=== PATIENT | male | born 1980 | race African-American/Black ===

== ENCOUNTER 2022-01-23 19:39 | Emergency (ER) | payer OTHER, SELFPAY ==
[2022-01-23 19:39] VITALS: BP 178/118; PULSE 98; RESP 18; TEMP 36.4; O2SAT 98; BMI 46.2
--- NOTE | 2022-01-23 20:30 | RAD_ITS ---
STUDY: X-RAY CHEST REASON FOR EXAM: Male, 41 years old. chest pain TECHNIQUE: Single AP portable view of the chest. COMPARISON: None. FINDINGS: The lungs are clear and expanded. There is no demonstrated pleural abnormality. Normal size heart. Normal mediastinum and reg. Normal visualized pulmonary arteries. Normal visualized aortic arch and descending thoracic aorta. Normal visualized thoracic spine. Normal visualized ribs, clavicles, and shoulders. There is no demonstrated abnormality of the visualized soft tissue structures of the upper abdomen. RAD/Chest 1 View (Portable) IMPRESSION: Normal x-ray examination of the chest. Electronically Signed: Moira Cruz MD at 20:59 EDT Reading Location ID and State: [id number] / Tel , Service support ,
[2022-01-23 20:35] LABS: Absolute Lymphocyte Count 2.41 X10^3/uL (0.83-4.51); Absolute Neutrophil Count 4.5 X10^3/uL (2.0-7.7); Basophil# 0.04 X10^3/uL; Basophil% 0.5 % (0-1); Eosinophil# 0.18 X10^3/uL; Eosinophils% 2.3 % (0-5); Hematocrit 48.7 % (40-54); Hemoglobin 16.7 g/dL (13.0-16.5); Lymphocyte # 2.41 X10^3/ul (0.83-4.51); Lymphocyte % 30.7 % (19-41); Mean Corp Hgb Conc 34.3 g/dL (32-36); Mean Corpuscular Hgb 30.8 pg (27.0-32.0); Mean Corpuscular Volume 89.9 fL (80-94); Mean Platelet Vol. 8.4 fl (6.2-12.0); Monocyte# 0.74 X10^3/uL; Monocyte% 9.4 % (0-10); NRBC Flagged by Analyzer 0 % (0-5); Neutrophil # 4.48 X10^3/uL (2.7-7.7); Platelet Count 316 K/mm3 (150-450); RBC Distribution Width CV 11.8 % (11.6-14.6); RBC Distribution Width SD 38.5 fl (35.1-43.9); Red Blood Count 5.42 M/mm3 (4.6-6.2); White Blood Count 7.9 K/mm3 (4.4-11.0)
[2022-01-23 20:48] LABS: Anion Gap 8 (5-15); BUN 11 mg/dL (7-18); Calcium,Total 9.3 mg/dL (8.5-10.1); Chloride 103 mmol/L (98-107); EST Glomerular Filtration Rate 78 mL/min (>60); Est Glom Filt Rate - Afr Amer 94 mL/min (>60); Estimated Creatinine Clearance 96.02 ml/min; Glucose 115 mg/dL (74-106); Potassium 3.6 mmol/L (3.5-5.1); Sodium Level 137 mmol/L (136-145); Troponin-I HS 12 pg/mL (3.0-78.0)
[2022-01-23 21:05] VITALS: PULSE 83; RESP 19; O2SAT 97
--- NOTE | 2022-01-23 21:45 | ED.VIS.CHEST ---
HPI History of Present Illness Chief Complaint: Chest Pain Narrative Narrative: 41-year-old male presenting with chest discomfort. He describes it as a dull ache. He had this last evening after he went to the [employer] game and had a couple of drinks and some spicy chicken wings. He states that this resolved. He went to sleep and wear a sleep apnea mask as he usually does. He states he does not have a history of GERD. He woke up today and was doing fine although he did not sleep very much. He states that tonight a couple of hours ago he noticed that he had a little discomfort again. He denies shortness of breath. Denies sharp pleuritic pain. He denies chest pressure. He is not lightheaded, dizzy, short of breath. He does express that he has some nausea. There is no radiation of the pain and he points to the left parasternal area. He has a history of a stress test 5 years ago which was normal. No history of cardiac disease that he knows of. He has a history of hypertension and sleep apnea. No fevers, chills, cough. [facility] Medical History HTN (hypertension) Home Medications amlodipine 5 mg tablet 10 mg PO DAILY 01/23/22 [History Last Taken Unknown] Allergy/AdvReac Type Severity Reaction Status Date / Time No Known Allergies Allergy Verified 01/23/22 19:41 Social History Smoking Status: Never smoker [facility] ED Constitutional Constitutional ED: Denies chills or fever(s) Eyes Eyes: Denies blurry vision or change in vision ENT ENT ED: Denies rhinorrhea or sore throat Cardiovascular Cardiovascular: Reports as per HPI Respiratory/Chest Respiratory/Chest: Denies cough or dyspnea Gastrointestinal Gastrointestinal: Reports nausea; Denies abdominal pain or constipation Genitourinary Genitourinary ED: Denies dysuria or hematuria Musculoskeletal Musculoskeletal: Denies arthralgias or back pain Integumentary Denies abscess or Abrasions Neurologic Neurologic: Denies headache(s) or paresthesias Psychiatric Psychiatric: Denies anxiety or depression EXAM Physical Exam Const Vital Signs: 01/23/22 19:39 01/23/22 20:24 01/23/22 20:24 Temperature 97.6 F L Temperature Source Temporal Pulse Rate 98 Respiratory Rate 18 Respiratory Effort Normal Non-Labored Blood Pressure 178/118 H Blood Pressure Mean 138 Pulse Ox 98 Oxygen Delivery Method Room Air Room Air 01/23/22 21:05 01/23/22 22:20 Temperature Temperature Source Pulse Rate 83 75 Respiratory Rate 19 H 20 H Respiratory Effort Blood Pressure 142/97 H Blood Pressure Mean 112 Pulse Ox 97 98 Oxygen Delivery Method Room Air Room Air Positive well nourished General Appearance ED: NAD; Negative for pallor HEENT Reports moist mucous membranes normocephalic Eyes PERRL and EOMs intact bilaterally Chest Wall inspection of chest normal Resp normal respiratory effort and clear to auscultation bilaterally Auscultation: Negative for rales, rhonchi or wheezes Cardio regular rate and regular rhythm GI normal to inspection, nondistended, normoactive bowel sounds Neuro oriented x3 and CN's II-XII intact bilaterally Sensorium / Orientation: awake and alert Psych mental status grossly normal Skin no rashes or lesions noted and no wounds General Skin Exam: Negative for jaundice or pallor Heart Score History: Slightly/Non-Suspicious ECG: Normal Age: </= 45 years Risk Factors: 1 or 2 Risk Factors Troponin: </= Normal Limit Score: 1 MDM MDM MDM Narrative Medical decision making narrative: Patient presenting with 2 episodes of chest discomfort. One he had last evening which lasted short durationan one this evening which was similar. He states he does not have any discomfort now. He does express that he has a little bit of nausea with this. No history of cardiac disease with a negative stress test about 5 years ago. EKG on my interpretation shows sinus rhythm with a ventricular rate of 79 bpm without signs of ischemic change or dysrhythmia. Chest x-ray on my interpretation shows no acute cardiopulmonary process and the radiologist agree. CBC shows no leukocytosis. Hemoglobin is slightly hemoconcentrated at 16.7. Platelets normal at 316. Renal function electrolytes within normal limits. HEART score of 1. High-sensitivity troponin is 12. Delta troponin 11. At this point I feel the patient has negative cardiac work-up he safe for discharge home. I have low suspicion for PE and patient is PERC negative. Patient counseled on findings. He will follow-up with his primary care to ensure resolution. Return precautions discussed. Impression: 1. Chest pain 2. Nausea Lab Data Attestation: I reviewed the patient's lab results. Labs: Laboratory Results - last 24 hr 01/23/22 01/23/22 01/23/22 20:20 20:20 22:19 WBC 7.9 RBC 5.42 Hgb 16.7 H Hct 48.7 MCV 89.9 MCH 30.8 MCHC 34.3 RDW Std Deviation 38.5 RDW Coeff of Antonio 11.8 Plt Count 316 MPV 8.4 Immature Gran % (Auto) 0.100 Neut % (Auto) 57.0 Lymph % (Auto) 30.7 [place] % (Auto) 9.4 Eos % (Auto) 2.3 Baso % (Auto) 0.5 Absolute Neuts (auto) 4.5 Absolute Lymphs (auto) 2.41 Nucleated RBC % 0 Sodium 137 Potassium 3.6 Chloride 103 Carbon Dioxide 26.0 Anion Gap 8 BUN 11 Creatinine 1.10 Estim Creat Clear Calc 96.02 Est GFR (MDRD) Af Amer 94 Est GFR (MDRD) Non-Af 78 BUN/Creatinine Ratio 10.0 Glucose 115 H Calcium 9.3 Troponin I High Sens 12 11 Radiography Diagnostic Testing: Clinical Impression(s) from Imaging Studies Chest X-Ray 01/23/22 20:30 IMPRESSION: Normal x-ray examination of the chest. Electronically Signed: Moira Cruz MD at 20:59 EDT Reading Location ID and State: [id number] / Tel , Service support , Discharge Plan Triage Chief Complaint: Chest Pain ED Provider: Steven Vasquez Dx/Rx/DC Orders Instructions: ED Chest Pain, Noncardiac Prescriptions: No Action amlodipine 5 mg tablet 10 mg PO DAILY Label Comments: take 1 tablet by mouth once daily Primary Care Provider: Arnie Dang Referrals: Arnie Dang MD [Primary Care Provider] - Disposition Disposition: Home, Self Care
[2022-01-23 22:20] VITALS: BP 142/97; PULSE 75; RESP 20; O2SAT 98
[2022-01-23 22:46] LABS: Troponin-I HS 11 pg/mL (3.0-78.0)
[2022-01-23 23:13] VITALS: BP 137/91; PULSE 74; RESP 15; O2SAT 97
== END 2022-01-23 23:17 | disposition home or self-care (01) ==
PROVIDERS: Emergency Provider Student in an Organized Health Care Education/Training Program; PCP Internal Medicine; Visit Provider Student in an Organized Health Care Education/Training Program
DX: R07.9 Chest pain, unspecified (principal); R11.0 Nausea; I10 Essential (primary) hypertension; Z79.899 Other long term (current) drug therapy
CPT/HCPCS: 36415; 71045; 80048; 84484; 85025; 93005; 99284; A4216

== ENCOUNTER 2022-03-28 20:12 | Emergency (ER) | payer OTHER, SELFPAY ==
[2022-03-28 20:13] VITALS: BP 140/89; PULSE 87; RESP 16; TEMP 36.7; O2SAT 97; BMI 45.6
--- NOTE | 2022-03-28 20:36 | EKG12_ITS ---
Test Reason : CP Blood Pressure : / mmHG Vent. Rate : 086 BPM Atrial Rate : 086 BPM P-R Int : 170 ms QRS Dur : 090 ms QT Int : 354 ms P-R-T Axes : 015 047 -04 degrees QTc Int : 423 ms Normal sinus rhythm Normal ECG Confirmed by PALOMA STEPHENS, YEIMI ([id number]), acquisitions editor ADRYAN DA SILVA ([id number]) on 03/30/2022 6:37:50 AM Referred By: MAIA Confirmed By:KJ DOW MD
--- NOTE | 2022-03-28 20:37 | RAD_ITS ---
INDICATION: chest pain EXAMINATION/TECHNIQUE: X-RAY - XR Chest 1 View COMPARISON: 01/23/2022 FINDINGS: LIFE-SUPPORT AND LINES: 1. None HEART AND VESSELS: The cardiac silhouette, pulmonary vasculature have normal appearance. No evidence of congestive failure. LUNGS AND PLEURAL SPACES: Lungs are clear. No focal infiltrate, consolidation or effusions. No evidence of pneumothorax. No pulmonary mass is noted. MEDIASTINUM AND HILAR REGIONS: No masses adenopathy noted. No areas of calcification. Visualized upper airway is normal in position. BONY ELEMENTS: No acute bony changes noted. RAD/Chest 1 View (Portable) IMPRESSION: 1. No evidence of acute cardiopulmonary process Electronically Signed: Hemant Wilkerson MD at 20:49 EST ,
[2022-03-28 22:14] LABS: Absolute Lymphocyte Count 3.62 X10^3/uL (0.83-4.51); Absolute Neutrophil Count 3.7 X10^3/uL (2.0-7.7); Basophil# 0.05 X10^3/uL; Basophil% 0.6 % (0-1); Eosinophil# 0.18 X10^3/uL; Eosinophils% 2.2 % (0-5); Hematocrit 50.3 % (40-54); Hemoglobin 17.2 g/dL (13.0-16.5); Lymphocyte # 3.62 X10^3/ul (0.83-4.51); Lymphocyte % 43.9 % (19-41); Mean Corp Hgb Conc 34.2 g/dL (32-36); Mean Corpuscular Hgb 30.4 pg (27.0-32.0); Mean Corpuscular Volume 88.9 fL (80-94); Mean Platelet Vol. 8.5 fl (6.2-12.0); Monocyte# 0.72 X10^3/uL; Monocyte% 8.7 % (0-10); NRBC Flagged by Analyzer 0 % (0-5); Neutrophil # 3.65 X10^3/uL (2.7-7.7); Neutrophil % 44.4 % (47-70); Platelet Count 340 K/mm3 (150-450); RBC Distribution Width CV 11.7 % (11.6-14.6); RBC Distribution Width SD 38.2 fl (35.1-43.9); Red Blood Count 5.66 M/mm3 (4.6-6.2); White Blood Count 8.2 K/mm3 (4.4-11.0)
--- NOTE | 2022-03-28 22:25 | EDS_ITS ---
HPI History of Present Illness Chief Complaint: Chest Pain Narrative Narrative: Patient is a 41-year-old male with past medical history of hypertension sleep apnea and low testosterone. 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 He states since that time he will feel intermittent lightheadedness and he will also not wake from sleep with some chest discomfort and feeling of shortness of breath. He states he is unsure if this could be cardiac in nature or if he is just having stress/anxiety after the event that occurred at the gym and secondary to this comes in for evaluation [facility] Medical History HTN (hypertension) Home Medications amlodipine 5 mg tablet 10 mg PO DAILY 01/23/22 [History Last Taken Unknown] Allergy/AdvReac Type Severity Reaction Status Date / Time No Known Allergies Allergy Verified 03/28/22 20:13 Social History Smoking Status: Never smoker ROS [facility] ED Constitutional Constitutional ED: Denies chills or fever(s) Eyes Eyes: Denies change in vision ENT ENT ED: Denies sore throat Cardiovascular Cardiovascular: Reports chest pain Respiratory/Chest Respiratory/Chest: Reports dyspnea; Denies cough Gastrointestinal Gastrointestinal: Denies abdominal pain, diarrhea, nausea or vomiting Genitourinary Genitourinary ED: Denies dysuria Musculoskeletal Musculoskeletal: Denies myalgias Integumentary Denies rash Neurologic Neurologic: Reports weakness; Denies headache(s) Hematologic/Lymphatic Hematologic/Lymphatic: Denies easy bleeding or easy bruising EXAM Physical Exam Const Vital Signs: 03/28/22 20:13 03/28/22 22:04 03/28/22 22:04 Temperature 98.0 F Temperature Source Temporal Pulse Rate 87 Pulse Rate [Lying] Pulse Rate [Sitting (for 1 minute prior to obtaining)] Pulse Rate [Standing (for 1 minute prior to obtaining)] Respiratory Rate 16 Respiratory Effort Normal Blood Pressure 140/89 H Blood Pressure [Lying] Blood Pressure [Sitting (for 1 minute prior to obtaining)] Blood Pressure [Standing (for 1 minute prior to obtaining)] Blood Pressure Mean 106 Blood Pressure Mean [Lying] Blood Pressure Mean [Sitting (for 1 minute prior to obtaining)] Blood Pressure Mean [Standing (for 1 minute prior to obtaining)] Pulse Ox 97 Oxygen Delivery Method Room Air Room Air 03/28/22 23:07 03/29/22 00:00 Temperature Temperature Source Pulse Rate 78 Pulse Rate [Lying] 71 Pulse Rate [Sitting (for 1 minute prior to obtaining)] 75 Pulse Rate [Standing (for 1 minute prior to obtaining)] 83 Respiratory Rate 22 H Respiratory Effort Blood Pressure 126/70 H Blood Pressure [Lying] 136/84 H Blood Pressure [Sitting (for 1 minute prior to obtaining)] 122/83 H Blood Pressure [Standing (for 1 minute prior to obtaining)] 156/100 H Blood Pressure Mean 88 Blood Pressure Mean [Lying] 101 Blood Pressure Mean [Sitting (for 1 minute prior to obtaining)] 96 Blood Pressure Mean [Standing (for 1 minute prior to obtaining)] 118 Pulse Ox 99 Oxygen Delivery Method Room Air Positive well nourished, well developed and obese General Appearance ED: well developed Nutritional Appearance: obese HEENT Reports moist mucous membranes Eyes PERRL and EOMs intact bilaterally General Eye ED: Negative for pale conjunctiva Neck supple Neck Narrative: No carotid bruit noted No thyroid nodule or goiter noted Chest Wall palpation of chest normal Resp normal respiratory effort and clear to auscultation bilaterally Cardio regular rate and regular rhythm Rate: other Other Details: Radial pulses are +2-4 bilaterally are equal and symmetric GI normal to inspection, nondistended, normoactive bowel sounds, non-tender, non- distended and no masses GI Narrative: No voluntary guarding or rigidity no pulsatile mass Auscultation: normoactive bowel sounds Palpation: soft Extremity normal to inspection Extremity Narrative: No asymmetric edema no pitting edema negative Homans' sign bilaterally Neuro oriented x3 and CN's II-XII intact bilaterally Sensorium / Orientation: alert Psych mental status grossly normal Skin no rashes or lesions noted MDM MDM MDM Narrative Medical decision making narrative: Patient presented to the ER in no acute distress with symptoms of cardiac disease versus anxiety as he reports he would have the symptoms mainly at night and after this stressful event occurred at work. However he does have risk factors for CAD so a basic work-up was obtained. Initial and delta troponin were normal D-dimer was negative going against DVT/PE especially as he is on testosterone replacement and x-ray revealed no acute lung pathology. On reevaluation the patient is resting comfortably and he has no symptoms. At this time as his work-up is negative and his pain has resolved spontaneously I do not feel there is need for inpatient treatment and patient is otherwise safe for d ischarge. Lab Data Attestation: I reviewed the patient's lab results. Labs: Laboratory Results - last 24 hr 03/28/22 03/28/22 03/28/22 22:00 22:00 22:00 WBC 8.2 RBC 5.66 Hgb 17.2 H Hct 50.3 MCV 88.9 MCH 30.4 MCHC 34.2 RDW Std Deviation 38.2 RDW Coeff of Antonio 11.7 Plt Count 340 MPV 8.5 Immature Gran % (Auto) 0.200 Neut % (Auto) 44.4 L Lymph % (Auto) 43.9 H [place] % (Auto) 8.7 Eos % (Auto) 2.2 Baso % (Auto) 0.6 Absolute Neuts (auto) 3.7 Absolute Lymphs (auto) 3.62 Nucleated RBC % 0 D-Dimer Quant (PE/DVT) Sodium 136 Potassium 3.9 Chloride 103 Carbon Dioxide 30.0 Anion Gap 3 L BUN 10 Creatinine 1.22 Estim Creat Clear Calc 86.58 Est GFR (MDRD) Af Amer 83 Est GFR (MDRD) Non-Af 69 BUN/Creatinine Ratio 8.2 L Glucose 100 Calcium 9.4 Magnesium 1.9 Troponin I High Sens 9 03/28/22 03/28/22 22:47 23:37 WBC RBC Hgb Hct MCV MCH MCHC RDW Std Deviation RDW Coeff of Antonio Plt Count MPV Immature Gran % (Auto) Neut % (Auto) Lymph % (Auto) [place] % (Auto) Eos % (Auto) Baso % (Auto) Absolute Neuts (auto) Absolute Lymphs (auto) Nucleated RBC % D-Dimer Quant (PE/DVT) 0.38 Sodium Potassium Chloride Carbon Dioxide Anion Gap BUN Creatinine Estim Creat Clear Calc Est GFR (MDRD) Af Amer Est GFR (MDRD) Non-Af BUN/Creatinine Ratio Glucose Calcium Magnesium Troponin I High Sens 10 Radiography Diagnostic Testing: Clinical Impression(s) from Imaging Studies Chest X-Ray 03/28/22 20:37 IMPRESSION: 1. No evidence of acute cardiopulmonary process Electronically Signed: Hemant Wilkerson MD at 20:49 EST , Chest x-ray as interpreted by the emergency medicine physician reveals no acute infiltrate pneumothorax or pleural effusion Discharge Plan Triage Chief Complaint: Chest Pain ED Provider: Sandor Fuller Dx/Rx/DC Orders Clinical Impression: Acute nonspecific chest pain with low risk of coronary artery disease, Hypertension Instructions: ED Chest Pain, Uncertain Cause, ED Hypertension, Established Prescriptions: No Action amlodipine 5 mg tablet 10 mg PO DAILY Label Comments: take 1 tablet by mouth once daily Primary Care Provider: Arnie Dang Referrals: Arnie Dang MD [Primary Care Provider] - Activity Restrictions/Additional Instructions: Please return to the ER should you have any further concerns Disposition Disposition: Home, Self Care
[2022-03-28] MEDS: Aspirin 325 MG Tablet PO (22:37)
[2022-03-28 22:46] LABS: Anion Gap 3 (5-15); BUN 10 mg/dL (7-18); BUN/Creat Ratio 8.2 RATIO (10-20); Calcium,Total 9.4 mg/dL (8.5-10.1); Chloride 103 mmol/L (98-107); Creatinine, Serum 1.22 mg/dL (0.70-1.30); EST Glomerular Filtration Rate 69 mL/min (>60); Est Glom Filt Rate - Afr Amer 83 mL/min (>60); Estimated Creatinine Clearance 86.58 ml/min; Glucose 100 mg/dL (74-106); Potassium 3.9 mmol/L (3.5-5.1); Sodium Level 136 mmol/L (136-145); Troponin-I HS 9 pg/mL (3.0-78.0)
[2022-03-28 22:55] LABS: Magnesium 1.9 mg/dL (1.6-2.6)
[2022-03-28 23:07] VITALS: BP 122/83; BP 136/84; BP 156/100; PULSE 71; PULSE 75; PULSE 83
[2022-03-28 23:08] LABS: D-Dimer Quantitative (DVT/PE) 0.38 FEU/ug/m (0.27-0.49)
[2022-03-29] VITALS: BP 126/70; PULSE 78; RESP 22; O2SAT 99
[2022-03-29 00:07] LABS: Troponin-I HS 10 pg/mL (3.0-78.0)
[2022-03-29 00:43] VITALS: BP 119/80; PULSE 73; RESP 19; O2SAT 100
== END 2022-03-29 00:46 | disposition home or self-care (01) ==
PROVIDERS: Emergency Provider Emergency Medicine; PCP Internal Medicine; Visit Provider Emergency Medicine
DX: R07.9 Chest pain, unspecified (principal); Z68.42 Body mass index [BMI] 45.0-49.9, adult; I10 Essential (primary) hypertension; E66.9 Obesity, unspecified; Z79.899 Other long term (current) drug therapy
CPT/HCPCS: 71045; 80048; 83735; 84484; 85025; 85379; 93005; 99284; A4216

== ENCOUNTER 2022-04-06 19:06 | Emergency (ER) | payer OTHER, SELFPAY ==
[2022-04-06 19:07] VITALS: BP 162/103; PULSE 86; RESP 15; TEMP 36.8; O2SAT 97; BMI 45.7
--- NOTE | 2022-04-06 19:11 | EKG12_ITS ---
Test Reason : CP Blood Pressure : / mmHG Vent. Rate : 085 BPM Atrial Rate : 085 BPM P-R Int : 178 ms QRS Dur : 104 ms QT Int : 344 ms P-R-T Axes : 058 066 -01 degrees QTc Int : 409 ms Normal sinus rhythm Normal ECG Confirmed by SEBASTIEN STEPHENS, ALISON ([id number]), newspaper managing editor ADRYAN DA SILVA ([id number]) on 04/09/2022 11:50:05 AM Referred By: Yony Elias Confirmed By:ALISON CROWE MD
--- NOTE | 2022-04-06 19:26 | RAD_ITS ---
INDICATION: chest pain EXAMINATION/TECHNIQUE: X-RAY - XR Chest 1 View COMPARISON: March 28, 2022 FINDINGS: LINES/DEVICES: None. LUNGS: No consolidation, edema or effusion. No pneumothorax. MEDIASTINUM AND CARDIOVASCULAR STRUCTURES: Cardiac silhouette not enlarged. Central airways and mediastinal contour are unremarkable. BONES AND SOFT TISSUES: Unremarkable. No change since prior exam RAD/Chest 1 View (Portable) IMPRESSION: No radiographic evidence of acute cardiopulmonary disease. Electronically Signed: David Lopez MD at 19:41 EST ,
[2022-04-06 19:28] LABS: Absolute Lymphocyte Count 3.55 X10^3/uL (0.83-4.51); Basophil# 0.05 X10^3/uL; Basophil% 0.6 % (0-1); Eosinophil# 0.14 X10^3/uL; Eosinophils% 1.6 % (0-5); Hematocrit 53.2 % (40-54); Hemoglobin 17.5 g/dL (13.0-16.5); Lymphocyte # 3.55 X10^3/ul (0.83-4.51); Lymphocyte % 40.7 % (19-41); Mean Corp Hgb Conc 32.9 g/dL (32-36); Mean Corpuscular Volume 91.1 fL (80-94); Mean Platelet Vol. 8.7 fl (6.2-12.0); Monocyte# 0.95 X10^3/uL; Monocyte% 10.9 % (0-10); NRBC Flagged by Analyzer 0 % (0-5); Neutrophil % 45.9 % (47-70); Platelet Count 345 K/mm3 (150-450); RBC Distribution Width SD 39.5 fl (35.1-43.9); Red Blood Count 5.84 M/mm3 (4.6-6.2); White Blood Count 8.7 K/mm3 (4.4-11.0)
[2022-04-06 19:44] LABS: Anion Gap 5 (5-15); BUN 10 mg/dL (7-18); BUN/Creat Ratio 8.1 RATIO (10-20); Calcium,Total 9.4 mg/dL (8.5-10.1); Chloride 102 mmol/L (98-107); Creatinine, Serum 1.24 mg/dL (0.70-1.30); EST Glomerular Filtration Rate 68 mL/min (>60); Est Glom Filt Rate - Afr Amer 82 mL/min (>60); Estimated Creatinine Clearance 85.18 ml/min; Glucose 96 mg/dL (74-106); Potassium 3.8 mmol/L (3.5-5.1); Sodium Level 135 mmol/L (136-145)
--- NOTE | 2022-04-06 20:06 | EX.ED.DYSGE1 ---
HPI History of Present Illness Chief Complaint: Chest Pain Informant: patient and spouse/S.O. Narrative Narrative: Patient presents with chest symptomatology. He was here within the last week for this and had negative extensive work-up including negative D-dimer and troponins. He tells me he is not really getting chest pain. But he gets a feeling in his chest. He describes it as an uneasiness but it is hard to describe. He states sometimes he feels like he needs to take a deeper breath but is not really short of breath. He sometimes feels just off but not actually confused. He does have a history of anxiety. He is on Xanax. He was just started on an SSRI 2 days ago when he saw his primary physician. He does have a history of sleep apnea. He has high blood pressure but no high cholesterol diabetes or family history of heart disease and no history of smoking. He is set to have a stress test in May. He states his symptoms been going on for around 3 or so months but they seem worse in the last week or so. 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 Patient does state that he not uncommonly gets symptoms after eating. He will occasionally get some acid reflux symptoms but that is much less common. He is not on anything for reflux. [facility] Medical History HTN (hypertension) Home Medications amlodipine 5 mg tablet 10 mg PO DAILY 01/23/22 [History Last Taken Unknown] esomeprazole magnesium 20 mg capsule,delayed release (Nexium) 20 mg PO DAILY #20 caps 04/06/22 [Rx Last Taken Unknown] Allergy/AdvReac Type Severity Reaction Status Date / Time No Known Allergies Allergy Verified 04/06/22 19:09 Social History Smoking Status: Never smoker ROS ROS ED Constitutional Constitutional ED: Denies subjective or sweats Eyes Eyes: Denies change in vision ENT ENT ED: Denies rhinorrhea or sore throat Cardiovascular Cardiovascular: Reports chest pain and other Details: See history of present illness. Patient states is not really pain that he gets but he gets some not normal feeling ; Denies palpitations or racing heartbeat Respiratory/Chest Respiratory/Chest: Denies cough or dyspnea Gastrointestinal Gastrointestinal: Denies nausea or vomiting Musculoskeletal Musculoskeletal: Denies arthralgias or myalgias Integumentary Denies rash Neurologic Neurologic: Denies headache(s) Psychiatric Psychiatric: Reports anxiety Endocrine Endocrinology: Denies polydipsia or polyuria Hematologic/Lymphatic Hematologic/Lymphatic: Denies easy bleeding or easy bruising Allergic/Immunologic Allergic/Immunologic ED: Denies urticaria EXAM Physical Exam Const Vital Signs: 04/06/22 19:07 04/06/22 19:49 04/06/22 20:20 Temperature 98.3 F Temperature Source Temporal Pulse Rate 86 75 Respiratory Rate 15 15 Respiratory Effort Normal Blood Pressure 162/103 H 141/80 H Blood Pressure Mean 122 100 Pulse Ox 97 97 Oxygen Delivery Method Room Air Room Air Positive well nourished and well developed General Appearance ED: well developed and NAD; Negative for cyanotic or diaphoretic HEENT Reports moist mucous membranes Eyes EOMs intact bilaterally General Eye ED: Negative for scleral icterus Neck no JVD Chest Wall inspection of chest normal and palpation of chest normal Resp normal respiratory effort and clear to auscultation bilaterally Resp Narrative: No pain with a deep breath. Auscultation: Negative for rales, rhonchi or wheezes Cardio regular rate, regular rhythm and no murmurs Back/Spine no CVA tenderness Extremity normal to inspection Extremity Narrative: No edema cords tenderness distended veins or asymmetry General Extremety ED: Negative for edema General Extremity: Negative for edema Neuro Sensorium / Orientation: alert Psych mental status grossly normal Skin no rashes or lesions noted MDM [facility] Lab Data Attestation: I reviewed the patient's lab results. Labs: Laboratory Results - last 24 hr 04/06/22 04/06/22 04/06/22 19:21 19:21 19:21 WBC 8.7 RBC 5.84 Hgb 17.5 H Hct 53.2 MCV 91.1 MCH 30.0 MCHC 32.9 RDW Std Deviation 39.5 RDW Coeff of Antonio 12.0 Plt Count 345 MPV 8.7 Immature Gran % (Auto) 0.300 Neut % (Auto) 45.9 L Lymph % (Auto) 40.7 [place] % (Auto) 10.9 H Eos % (Auto) 1.6 Baso % (Auto) 0.6 Absolute Neuts (auto) 4.0 Absolute Lymphs (auto) 3.55 Nucleated RBC % 0 Sodium 135 L Potassium 3.8 Chloride 102 Carbon Dioxide 28.0 Anion Gap 5 BUN 10 Creatinine 1.24 Estim Creat Clear Calc 85.18 Est GFR (MDRD) Af Amer 82 Est GFR (MDRD) Non-Af 68 BUN/Creatinine Ratio 8.1 L Glucose 96 Calcium 9.4 Troponin I High Sens 9 Radiography Diagnostic Testing: Clinical Impression(s) from Imaging Studies Chest X-Ray 04/06/22 19:26 IMPRESSION: No radiographic evidence of acute cardiopulmonary disease. Electronically Signed: David Lopez MD at 19:41 EST , EKG Initial EKG: Comments: My independent interpretation of an EKG done for chest symptomatology shows a normal sinus rhythm with overall rate of 85. No ectopy. There is mild baseline motion but no sign of acute ST elevation or depression. CO interval, QRS duration and QTc is normal. The EKG shows no notable change from 28 March of this year. Discharge Plan Triage Chief Complaint: Chest Pain ED Provider: Yony Elias Dx/Rx/DC Orders Clinical Impression: Chest pain, History of anxiety, Chest wall symptom Instructions: ED Chest Pain, Uncertain Cause Prescriptions: New esomeprazole magnesium [Nexium] 20 mg capsule,delayed release(DR/EC) 20 mg PO DAILY Qty: 20 0RF No Action amlodipine 5 mg tablet 10 mg PO DAILY Label Comments: take 1 tablet by mouth once daily Primary Care Provider: Arnie Dang Referrals: Arnie Dang MD [Primary Care Provider] - As soon as possible Disposition Disposition: Home, Self Care
[2022-04-06 20:18] LABS: Troponin-I HS 9 pg/mL (3.0-78.0)
[2022-04-06 20:20] VITALS: BP 141/80; PULSE 75; RESP 15; O2SAT 97
[2022-04-06] MEDS: Pantoprazole Sodium 20 MG Tablet PO (21:08)
[2022-04-06 21:10] VITALS: BP 139/91
== END 2022-04-06 21:10 | disposition home or self-care (01) ==
PROVIDERS: Emergency Provider Emergency Medicine; PCP Internal Medicine; Referring Provider Emergency Medicine; Visit Provider Emergency Medicine
DX: R07.9 Chest pain, unspecified (principal); I10 Essential (primary) hypertension; F41.9 Anxiety disorder, unspecified; Z79.899 Other long term (current) drug therapy
CPT/HCPCS: 71045; 80048; 84484; 85025; 93005; 99285; A4216

== ENCOUNTER → 2022-06-04 | Outpatient (CLI) | payer OTHER, SELFPAY ==
[2022-06-04 15:53] LABS: Vitamin B12 504 pg/mL (211-911)
[2022-06-04 15:59] LABS: T4 Free Direct 0.74 ng/dL (0.76-1.46); Thyroid Stim Hormone (TSH) 2.71 uIU/mL (0.358-3.74)
== END | disposition home or self-care (01) ==
LOC: BIMLAB 13:55
PROVIDERS: PCP Internal Medicine; Referring Provider Internal Medicine; Visit Provider Internal Medicine
DX: F41.1 Generalized anxiety disorder (principal); F41.0 Panic disorder [episodic paroxysmal anxiety]
CPT/HCPCS: 36415; 82607; 84439; 84443